=== PATIENT | male | born 1950 | race African-American/Black ===

== ENCOUNTER 2017-08-11 11:07 | Inpatient (IN) | payer OTHER ==
[2017-08-11 12:17] VITALS: BMI 29.0
--- NOTE | 2017-08-11 13:29 | HP ---
<Carolynn Brian - Last Filed: 08/11/17 14:08> COWS - Scale Resting Pulse: 0= [place] 80 or Below Sweatin=Flushed/Facial Moisture Restless Observation: 1= Difficult to Sit Still Pupil Size: 0= Normal to Room Light Bone or Joint Aches: 2= Severe Diffuse Aches Runny Nose/ Eye Tearin= Runny Nose/Eyes GI Upset > 30mins: 2= Nausea/Diarrhea Tremor Observation: 1= Tremor [place], Not Seen Yawning Observation: 2= >3x During Session Anxiety or Irritability: 2=Irritable/Anxious Goose Flesh Skin: 0=Smooth Skin COWS Score: 14 Admission ROS BHS - HPI Chief Complaint: I am here to detox from heroin. Allergies/Adverse Reactions: Allergies Allergy/AdvReac Type Severity Reaction Status Date / Time No Known Allergies Allergy Verified 08/11/17 13:20 History of Present Illness: Heroin dependence, Last detox 2-3 years ago, unable to recall location. Reports longest period of sobriety 1 year through out patient rehab. Exam Limitations: No Limitations - Ebola screening Have you traveled outside of the country in the last 21 days: No Have you had contact with anyone from an Ebola affected area: No Have you been sick,other than usual withdrawal symptoms: No Do you have a fever: No - Review of Systems Constitutional: Chills, Loss of Appetite, Changes in sleep, Unintentional Wgt. Loss EENT: reports: Double Vision Respiratory: reports: Cough (non-productive) Cardiac: reports: No Symptoms Reported GI: reports: Diarrhea : reports: No Symptoms Reported Musculoskeletal: reports: Joint Pain Integumentary: reports: Dryness Neuro: reports: No Symptoms reported Endocrine: reports: No Symptoms Reported Hematology: reports: No Symptoms Reported Psychiatric: reports: Judgement Intact, Mood/Affect Appropiate, Orientated x3, Depressed Other Systems: Reviewed and Negative Patient History - Patient Medical History Hx Anemia: No Hx Asthma: No Hx Chronic Obstructive Pulmonary Disease (COPD): No Hx Cancer: No Hx Cardiac Disorders: No Hx Congestive Heart Failure: No Hx Hypertension: Yes Hx Hypercholesterolemia: No Hx Pacemaker: No HX Cerebrovascular Accident: No Hx Seizures: No Hx Dementia: No Hx Diabetes: No Hx Gastrointestinal Disorders: No Hx Liver Disease: No Hx Genitourinary Disorders: No Hx Sexually Transmitted Disorders: Yes (reports hx of syphillis and was treated) Hx Renal Disease (ESRD): No Hx Thyroid Disease: No Hx Human Immunodeficiency Virus (HIV): No (reports negative) Hx Hepatitis C: No (reports negative) Hx Depression: Yes Hx Suicide Attempt: No (Denies ) Hx Bipolar Disorder: No Hx Schizophrenia: No - Patient Surgical History Past Surgical History: No Hx Neurologic Surgery: No Hx Cataract Extraction: No Hx Cardiac Surgery: No Hx Lung Surgery: No Hx Breast Surgery: No Hx Breast Biopsy: No Hx Abdominal Surgery: No Hx Appendectomy: No Hx Cholecystectomy: No Hx Genitourinary Surgery: No Hx Section: No Hx Orthopedic Surgery: No Anesthesia Reaction: No - PPD History Previous Implant?: No Implanted On Prior R Admission?: No PPD to be Administered?: Yes - Reproductive History Patient is a Female of Child Bearing Age (11 -55 yrs old): No - Smoking Cessation Smoking history: Former smoker (Quit 25 years ago) Have you smoked in the past 12 months: No Hx Chewing Tobacco Use: No Initiated information on smoking cessation: No - Substance & Tx. History Hx Alcohol Use: No (denies ) Hx Substance Use: Yes Substance Use Type: Heroin Hx Substance Use Treatment: Yes (as per patient 2-3 years ago, unable to recall name of the center) - Substances Abused Heroin Route: Inhalation Frequency: Daily Amount used: 5-10 bags Age of first use: 13 Date of Last Use: 08/11/17 Family Disease History - Family Disease History Family Disease History: Other: Father (Alcholism ), Mother (Kidney failure ) Admission Physical Exam BHS - Vital Signs Vital Signs: Vital Signs - 24 hr 08/11/17 12:16 Temperature 98.1 F Pulse Rate 73 Respiratory 18 Rate Blood Pressure 138/79 - Physical General Appearance: Yes: Disheveled, Other (malodorous) HEENTM: Yes: Hearing grossly Normal, Normocephalic, Normal Voice, Pharynx Normal Respiratory: Yes: Chest Non-Tender, Lungs Clear, Normal Breath Sounds, No Respiratory Distress, No Accessory Muscle Use Neck: Yes: No masses,lesions,Nodules, Trachea in good position Breast: Yes: Breast Exam Deferred Cardiology: Yes: Regular Rhythm, Regular Rate, S1, S2 Abdominal: Yes: Within Normal Limits Genitourinary: Yes: Other (Reports no symptoms) Back: Yes: Within Normal Limits, Normal Inspection Musculoskeletal: Yes: full range of Motion, Gait Steady, Pelvis Stable Extremities: Yes: Normal Capillary Refill, Normal Inspection, Normal Range of Motion, Non-Tender Neurological: Yes: car chaser II-XII NML intact, Fully Oriented, Alert, Motor Strength 5/5, Normal Response, Depressed Affect Integumentary: Yes: Normal Color, Dry Lymphatic: Yes: Within Normal Limits - Diagnostic (1) Heroin dependence Current Visit: Yes Status: Chronic (2) Hypertension Current Visit: Yes Status: Chronic [facility] Breath Alcohol Content Breath Alcohol Content: 0 Urine Drug Screen - Results Drug Screen Negative: No Urine Drug Screen Results: OPI-Opiates <lAan Fuller - Last Filed: 08/11/17 15:42> Admission Physical Exam [facility] - Vital Signs Vital Signs: Vital Signs - 24 hr 08/11/17 12:16 Temperature 98.1 F Pulse Rate 73 Respiratory 18 Rate Blood Pressure 138/79 Cleared for Admission [facility] - Detox or Rehab [facility] Level of Care: Medically Managed Detox Regimen/Protocol: Methadone
[2017-08-11] MEDS ORDERED: MAGNESIUM HYDROX 2400MG/30ML ORAL SUSPENSION 30 ML CUP PO PRN (14:18)
[2017-08-11] MEDS ORDERED: guaiFENesin/D-METHORPHAN HB 10 ML UNIT-DOSE CUPS PO PRN (14:18)
[2017-08-11] MEDS ORDERED: P-EPHED 60MG/TRIPROLIDI 2.5MG TABLET PO PRN (14:18)
[2017-08-11] MEDS ORDERED: LOPERAMIDE HCL 2 MG CAPSULE PO PRN (14:18)
[2017-08-11] MEDS ORDERED: MENTHOL/PHENOL 1 EACH UD MM PRN (14:18)
[2017-08-11] MEDS ORDERED: MAG HYDROX/AL HYDROX/SIMETH 30 ML UNIT-DOSE CUP PO PRN (14:18)
[2017-08-11] MEDS ORDERED: MAGNESIUM CITRATE 300 ML BOTTLE PO PRN (14:18)
[2017-08-11] MEDS ORDERED: ACETAMINOPHEN 325 MG TABLET (FP) PO PRN (14:18)
[2017-08-11] MEDS ORDERED: METHADONE HCL 10 MG TABLET (FOR DETOX USE ONLY) PO ONE ×2 (15:03→23:00)
[2017-08-11] MEDS: diazePAM 5 MG TABLET PO PRN (15:22)
[2017-08-11 18:10] LABS: URINE APPEARANCE TURBID; URINE BILIRUBIN NEGATIVE (NEGATIVE); URINE BLOOD NEGATIVE (NEGATIVE); URINE COLOR AMBER; URINE GLUCOSE (UA) NEGATIVE (NEGATIVE); URINE KETONE NEGATIVE (NEGATIVE); URINE LEUK ESTERASE NEGATIVE (NEGATIVE); URINE NITRITE NEGATIVE (NEGATIVE); URINE PROTEIN 1+ (NEGATIVE); URINE UROBILINOGEN 4.0 E.U/dl mg/dL (0.2-1.0)
[2017-08-11 18:41] LABS: URINE BACTERIA FEW /hpf (NONE SEEN); URINE MUCUS FEW; YEAST RARE
[2017-08-11 21:58] LABS: AMORP URATES MANY /hpf (NONE SEEN)
[2017-08-11] MEDS ORDERED: PATIENT'S OWN MEDICATION (NON-FORMULARY) (Simvastatin [Simvastatin] 10 MG) PO SCH (22:00)
[2017-08-11] MEDS: ATORVASTATIN CA 10 MG TABLET (FP) PO SCH (22:28)
[2017-08-11] MEDS: THIAMINE HCL 100 MG TABLET (FP) PO SCH (22:28)
[2017-08-12] MEDS: diazePAM 5 MG TABLET PO PRN ×2 (09:11→22:35)
--- NOTE | 2017-08-12 09:38 | EKG ---
Test Reason : Blood Pressure : / mmHG Vent. Rate : 068 BPM Atrial Rate : 068 BPM P-R Int : 132 ms QRS Dur : 092 ms QT Int : 398 ms P-R-T Axes : 051 -14 004 degrees QTc Int : 423 ms NORMAL SINUS RHYTHM MODERATE VOLTAGE CRITERIA FOR LVH, MAY BE NORMAL VARIANT BORDERLINE ECG NO PREVIOUS ECGS AVAILABLE Confirmed by DERRICK CHAPIN MD ([id number]) on 08/12/2017 9:37:53 AM Referred By: Confirmed By:DERRICK CHAPIN MD
[2017-08-12] MEDS ORDERED: ENALAPRIL MALEATE 5 MG TABLET (FP) PO SCH ×2 (10:00→12:41)
[2017-08-12] MEDS ORDERED: METHADONE HCL 10 MG TABLET (FOR DETOX USE ONLY) PO ONE (10:00)
[2017-08-12] MEDS ORDERED: amLODIPine BESYLATE 5 MG TABLET (FP) PO SCH (10:00)
[2017-08-12] MEDS: PRENATAL VITAMINS W/ FOLIC ACID TABLET (FP) PO SCH (10:10)
[2017-08-12 10:15] LABS: HEMATOCRIT 33.1 % (35.4-49); HEMOGLOBIN 10.4 GM/dL (11.7-16.9); MCH 26.4 pg (25.7-33.7); MCHC 31.5 g/dl (32.0-35.9); MEAN CELL VOLUME 83.9 fl (80-96); MEAN PLT VOLUME 8.7 fl (7.5-11.1); PLATELET COUNT 370 K/MM3 (134-434); RBC 3.94 M/mm3 (4.00-5.60); RDW 13.6 % (11.9-15.9); WHITE BLOOD COUNT 5.5 K/mm3 (4.0-10.0)
[2017-08-12 10:28] LABS: CHLORIDE 101 mmol/L (98-107); POTASSIUM 4.3 mmol/L (3.5-5.1); SODIUM 139 mmol/L (136-145)
[2017-08-12 10:37] LABS: ALBUMIN 3.5 g/dl (3.4-5.0); ALK PHOS 68 U/L (45-117); ANION GAP 8 (8-16); BILIRUBIN,TOTAL 0.4 mg/dL (0.2-1.0); BLOOD UREA NITROGEN 12 mg/dL (7-18); CALCIUM 8.8 mg/dL (8.5-10.1); CO2 30 mmol/L (21-32); CREATININE 1.1 mg/dL (0.7-1.3); GLUCOSE,RANDOM 95 mg/dL (74-106); SGOT/AST 29 U/L (15-37); SGPT/ALT 41 U/L (12-78); TOT PROT 7.3 g/dl (6.4-8.2)
[2017-08-12] MEDS ORDERED: FLU VACCINE QUAD 60 MCG/0.5 ML (MDV 17-18) IM ONE (12:00)
[2017-08-12] MEDS ORDERED: PNEUMOC 13-VAL CONJ-DIP CRM/PF 0.5 ML DISP.SYRIN IM ONE (12:00)
--- NOTE | 2017-08-12 12:40 | PN ---
BHS COWS - Scale Resting Pulse: 0= [place] 80 or Below Sweatin= Chills/Flushing Restless Observation: 3= Extraneous Movement Pupil Size: 2= Moderately Dilated Bone or Joint Aches: 2= Severe Diffuse Aches Runny Nose/ Eye Tearin= None GI Upset > 30mins: 0= None Tremor Observation of Outstretched Hands: 1= Tremor [place], Not Seen Yawning Observation: 2= >3x During Session Anxiety or Irritability: 2=Irritable/Anxious Goose Flesh Skin: 0=Smooth Skin COWS Score: 13 BHS Progress Note (SOAP) Subjective: ANXIETY,CHILLS,FATIGUE. Objective: 08/12/17 12:40 Vital Signs Temperature 99.8 F H 08/12/17 10:10 Pulse Rate 80 08/12/17 10:10 Respiratory Rate 18 08/12/17 10:10 Blood Pressure 120/62 08/12/17 10:10 O2 Sat by Pulse Oximetry (%) Laboratory Last Values WBC 5.5 K/mm3 (4.0-10.0) 08/12/17 06:00 RBC 3.94 M/mm3 (4.00-5.60) L 08/12/17 06:00 Hgb 10.4 GM/dL (11.7-16.9) L 08/12/17 06:00 Hct 33.1 % (35.4-49) L 08/12/17 06:00 MCV 83.9 fl (80-96) 08/12/17 06:00 MCH 26.4 pg (25.7-33.7) 08/12/17 06:00 MCHC 31.5 g/dl (32.0-35.9) L 08/12/17 06:00 RDW 13.6 % (11.9-15.9) 08/12/17 06:00 Plt Count 370 K/MM3 (134-434) 08/12/17 06:00 MPV 8.7 fl (7.5-11.1) 08/12/17 06:00 Sodium 139 mmol/L (136-145) 08/12/17 06:00 Potassium 4.3 mmol/L (3.5-5.1) 08/12/17 06:00 Chloride 101 mmol/L (98-107) 08/12/17 06:00 Carbon Dioxide 30 mmol/L (21-32) 08/12/17 06:00 Anion Gap 8 (8-16) 08/12/17 06:00 BUN 12 mg/dL (7-18) 08/12/17 06:00 Creatinine 1.1 mg/dL (0.7-1.3) 08/12/17 06:00 Creat Clearance w eGFR > 60 (>60) 08/12/17 06:00 Random Glucose 95 mg/dL (74-106) 08/12/17 06:00 Calcium 8.8 mg/dL (8.5-10.1) 08/12/17 06:00 Total Bilirubin 0.4 mg/dL (0.2-1.0) 08/12/17 06:00 AST 29 U/L (15-37) 08/12/17 06:00 ALT 41 U/L (12-78) 08/12/17 06:00 Alkaline Phosphatase 68 U/L (45-117) 08/12/17 06:00 Total Protein 7.3 g/dl (6.4-8.2) 08/12/17 06:00 Albumin 3.5 g/dl (3.4-5.0) 08/12/17 06:00 Urine Color K[place] 08/11/17 15:00 Urine Appearance Turbid 08/11/17 15:00 Urine pH 5.0 (5.0-8.0) 08/11/17 15:00 Ur Specific [place] 1.027 (1.001-1.035) 08/11/17 15:00 Urine Protein 1+ (NEGATIVE) H 08/11/17 15:00 Urine Glucose (UA) Negative (NEGATIVE) 08/11/17 15:00 Urine Ketones Negative (NEGATIVE) 08/11/17 15:00 Urine Blood Negative (NEGATIVE) 08/11/17 15:00 Urine Nitrite Negative (NEGATIVE) 08/11/17 15:00 Urine Bilirubin Negative (NEGATIVE) 08/11/17 15:00 Urine Urobilinogen 4.0 e.u/dl mg/dL (0.2-1.0) 08/11/17 15:00 Ur Leukocyte Esterase Negative (NEGATIVE) 08/11/17 15:00 Urine WBC (Auto) 9 /hpf (3-5) 08/11/17 15:00 Urine RBC (Auto) None /hpf (0-3) 08/11/17 15:00 Amorphous Urates Many /hpf (NONE SEEN) 08/11/17 15:00 Urine Bacteria Few /hpf (NONE SEEN) 08/11/17 15:00 Urine Mucus Few 08/11/17 15:00 Urine Yeast Rare 08/11/17 15:00 Assessment: 08/12/17 12:40 WITHDRAWAL SX Plan: CONTINUE DETOX
--- NOTE | 2017-08-12 15:08 | CONSULT ---
[facility] Psychiatric Consult - Data Date of interview: 08/12/17 Admission source: [facility] Identifying data: First admission to [facility] for this 67 y/o AA male seeking detox treatment on for heroin dependence.Patient is single without children,domiciled,unemployed and supported on SSI benefits. Substance Abuse History: Discussed with patient.Mr Rodney endorses continuous use of heroin as detailed in current [facility] report : Smoking history: Former smoker (Quit 25 years ago). Have you smoked in the past 12 months: No. Hx Chewing Tobacco Use: No. Initiated information on smoking cessation: No. - Substance & Tx. History. Hx Alcohol Use: No (denies ). Hx Substance Use: Yes. Substance Use Type: Heroin. Hx Substance Use Treatment: Yes (as per patient 2 -3 years ago, unable to recall name of the center). - Substances Abused. Heroin. Route: Inhalation. Frequency: Daily. Amount used: 5-10 bags. Age of first use: 13. Date of Last Use: 08/11/17 Medical History: Hypertension,dyslipidemia and past history of treatment for syphilis. Psychiatric History: Patient denies. Physical/Sexual Abuse/Trauma History: Patient denies. Additional Comment: Urine Drug Screen Results: OPI-Opiates.Noted. Mental Status Exam - Mental Status Exam Alert and Oriented to: Time, Place, Person Cognitive Function: Good Patient Appearance: Well Groomed (edentulous) Mood: Hopeful, Euthymic Affect: Appropriate, Normal Range Patient Behavior: Appropriate, Cooperative Speech Pattern: Clear, Appropriate Voice Loudness: Normal Thought Process: Intact, Goal Oriented Thought Disorder: Not Present Hallucinations: Denies Suicidal Ideation: Denies Homicidal Ideation: Denies Insight/Judgement: Poor Sleep: Well Appetite: Good Muscle strength/Tone: Normal Gait/Station: Normal Psychiatric Findings - Problem List ([place] 1, 2,3) (1) Opioid dependence with withdrawal Current Visit: Yes Status: Acute - Initial Treatment Plan Initial Treatment Plan: Psychoeducation and support provided.Detoxification in progress.Observation.
[2017-08-12] MEDS: ATORVASTATIN CA 10 MG TABLET (FP) PO SCH (22:34)
[2017-08-12] MEDS: THIAMINE HCL 100 MG TABLET (FP) PO SCH (22:34)
[2017-08-12] MEDS: ENALAPRIL MALEATE 10 MG TABLET (FP) PO SCH (22:34)
[2017-08-13] MEDS ORDERED: METHADONE HCL 5 MG TABLET (FOR DETOX USE ONLY) PO ONE (10:00)
[2017-08-13] MEDS: diazePAM 5 MG TABLET PO PRN ×2 (10:25→22:22)
[2017-08-13] MEDS: ENALAPRIL MALEATE 10 MG TABLET (FP) PO SCH ×2 (10:25→22:22)
[2017-08-13] MEDS: PRENATAL VITAMINS W/ FOLIC ACID TABLET (FP) PO SCH (10:25)
[2017-08-13] MEDS: amLODIPine BESYLATE 10 MG TABLET (FP) PO SCH (10:25)
[2017-08-13] MEDS: IBUPROFEN 400 MG TABLET (FP) PO PRN (11:08)
--- NOTE | 2017-08-13 11:25 | PN ---
BHS COWS - Scale Resting Pulse: 0= [place] 80 or Below Sweatin= Chills/Flushing Restless Observation: 3= Extraneous Movement Pupil Size: 2= Moderately Dilated Bone or Joint Aches: 1= Mild Discomfort Runny Nose/ Eye Tearin= Nasal Congestion GI Upset > 30mins: 0= None Tremor Observation of Outstretched Hands: 2= Slight Tremor Visible Yawning Observation: 2= >3x During Session Anxiety or Irritability: 2=Irritable/Anxious Goose Flesh Skin: 0=Smooth Skin COWS Score: 14 BHS Progress Note (SOAP) Subjective: ANXIETY,CHILLS,SWEATS,INTERMITTENT SLEEP. Objective: 08/13/17 11:23 Vital Signs Temperature 99.3 F 08/13/17 09:29 Pulse Rate 80 08/13/17 09:29 Respiratory Rate 18 08/13/17 09:29 Blood Pressure 93/60 08/13/17 09:29 O2 Sat by Pulse Oximetry (%) Laboratory Last Values WBC 5.5 K/mm3 (4.0-10.0) 08/12/17 06:00 RBC 3.94 M/mm3 (4.00-5.60) L 08/12/17 06:00 Hgb 10.4 GM/dL (11.7-16.9) L 08/12/17 06:00 Hct 33.1 % (35.4-49) L 08/12/17 06:00 MCV 83.9 fl (80-96) 08/12/17 06:00 MCH 26.4 pg (25.7-33.7) 08/12/17 06:00 MCHC 31.5 g/dl (32.0-35.9) L 08/12/17 06:00 RDW 13.6 % (11.9-15.9) 08/12/17 06:00 Plt Count 370 K/MM3 (134-434) 08/12/17 06:00 MPV 8.7 fl (7.5-11.1) 08/12/17 06:00 Sodium 139 mmol/L (136-145) 08/12/17 06:00 Potassium 4.3 mmol/L (3.5-5.1) 08/12/17 06:00 Chloride 101 mmol/L (98-107) 08/12/17 06:00 Carbon Dioxide 30 mmol/L (21-32) 08/12/17 06:00 Anion Gap 8 (8-16) 08/12/17 06:00 BUN 12 mg/dL (7-18) 08/12/17 06:00 Creatinine 1.1 mg/dL (0.7-1.3) 08/12/17 06:00 Creat Clearance w eGFR > 60 (>60) 08/12/17 06:00 Random Glucose 95 mg/dL (74-106) 08/12/17 06:00 Calcium 8.8 mg/dL (8.5-10.1) 08/12/17 06:00 Total Bilirubin 0.4 mg/dL (0.2-1.0) 08/12/17 06:00 AST 29 U/L (15-37) 08/12/17 06:00 ALT 41 U/L (12-78) 08/12/17 06:00 Alkaline Phosphatase 68 U/L (45-117) 08/12/17 06:00 Total Protein 7.3 g/dl (6.4-8.2) 08/12/17 06:00 Albumin 3.5 g/dl (3.4-5.0) 08/12/17 06:00 Urine Color Kelli 08/11/17 15:00 Urine Appearance Turbid 08/11/17 15:00 Urine pH 5.0 (5.0-8.0) 08/11/17 15:00 Ur Specific [place] 1.027 (1.001-1.035) 08/11/17 15:00 Urine Protein 1+ (NEGATIVE) H 08/11/17 15:00 Urine Glucose (UA) Negative (NEGATIVE) 08/11/17 15:00 Urine Ketones Negative (NEGATIVE) 08/11/17 15:00 Urine Blood Negative (NEGATIVE) 08/11/17 15:00 Urine Nitrite Negative (NEGATIVE) 08/11/17 15:00 Urine Bilirubin Negative (NEGATIVE) 08/11/17 15:00 Urine Urobilinogen 4.0 e.u/dl mg/dL (0.2-1.0) 08/11/17 15:00 Ur Leukocyte Esterase Negative (NEGATIVE) 08/11/17 15:00 Urine WBC (Auto) 9 /hpf (3-5) 08/11/17 15:00 Urine RBC (Auto) None /hpf (0-3) 08/11/17 15:00 Amorphous Urates Many /hpf (NONE SEEN) 08/11/17 15:00 Urine Bacteria Few /hpf (NONE SEEN) 08/11/17 15:00 Urine Mucus Few 08/11/17 15:00 Urine Yeast Rare 08/11/17 15:00 RPR Titer Nonreactive (NONREACTIVE) 08/12/17 06:00 Assessment: 08/13/17 11:23 WITHDRAWAL SX Plan: CONTINUE DETOX INCREASE PO FLUIDS.
[2017-08-13] MEDS: ATORVASTATIN CA 10 MG TABLET (FP) PO SCH (22:22)
[2017-08-13] MEDS: THIAMINE HCL 100 MG TABLET (FP) PO SCH (22:22)
[2017-08-14] MEDS ORDERED: METHADONE HCL 5 MG TABLET (FOR DETOX USE ONLY) PO ONE (10:00)
[2017-08-14] MEDS: amLODIPine BESYLATE 10 MG TABLET (FP) PO SCH (10:28)
[2017-08-14] MEDS: PRENATAL VITAMINS W/ FOLIC ACID TABLET (FP) PO SCH (10:28)
[2017-08-14] MEDS: ENALAPRIL MALEATE 10 MG TABLET (FP) PO SCH (10:28)
[2017-08-14] MEDS: IBUPROFEN 400 MG TABLET (FP) PO PRN (10:31)
--- NOTE | 2017-08-14 11:10 | PN ---
BHS Progress Note (SOAP) Subjective: LIGHT ANXIETY,FATIGUE. DENIES HEADACHE OR DIZZINESS. Objective: 08/14/17 11:07 Vital Signs 08/14/17 08/14/17 08/14/17 03:27 06:09 09:51 Temperature 97.7 F 98.2 F Pulse Rate 58 L 72 Respiratory 18 16 18 Rate Blood Pressure 163/85 96/83 Laboratory Last Values WBC 5.5 K/mm3 (4.0-10.0) 08/12/17 06:00 RBC 3.94 M/mm3 (4.00-5.60) L 08/12/17 06:00 Hgb 10.4 GM/dL (11.7-16.9) L 08/12/17 06:00 Hct 33.1 % (35.4-49) L 08/12/17 06:00 MCV 83.9 fl (80-96) 08/12/17 06:00 MCH 26.4 pg (25.7-33.7) 08/12/17 06:00 MCHC 31.5 g/dl (32.0-35.9) L 08/12/17 06:00 RDW 13.6 % (11.9-15.9) 08/12/17 06:00 Plt Count 370 K/MM3 (134-434) 08/12/17 06:00 MPV 8.7 fl (7.5-11.1) 08/12/17 06:00 Sodium 139 mmol/L (136-145) 08/12/17 06:00 Potassium 4.3 mmol/L (3.5-5.1) 08/12/17 06:00 Chloride 101 mmol/L (98-107) 08/12/17 06:00 Carbon Dioxide 30 mmol/L (21-32) 08/12/17 06:00 Anion Gap 8 (8-16) 08/12/17 06:00 BUN 12 mg/dL (7-18) 08/12/17 06:00 Creatinine 1.1 mg/dL (0.7-1.3) 08/12/17 06:00 Creat Clearance w eGFR > 60 (>60) 08/12/17 06:00 Random Glucose 95 mg/dL (74-106) 08/12/17 06:00 Calcium 8.8 mg/dL (8.5-10.1) 08/12/17 06:00 Total Bilirubin 0.4 mg/dL (0.2-1.0) 08/12/17 06:00 AST 29 U/L (15-37) 08/12/17 06:00 ALT 41 U/L (12-78) 08/12/17 06:00 Alkaline Phosphatase 68 U/L (45-117) 08/12/17 06:00 Total Protein 7.3 g/dl (6.4-8.2) 08/12/17 06:00 Albumin 3.5 g/dl (3.4-5.0) 08/12/17 06:00 Urine Color Kelli 08/11/17 15:00 Urine Appearance Turbid 08/11/17 15:00 Urine pH 5.0 (5.0-8.0) 08/11/17 15:00 Ur Specific [place] 1.027 (1.001-1.035) 08/11/17 15:00 Urine Protein 1+ (NEGATIVE) H 08/11/17 15:00 Urine Glucose (UA) Negative (NEGATIVE) 08/11/17 15:00 Urine Ketones Negative (NEGATIVE) 08/11/17 15:00 Urine Blood Negative (NEGATIVE) 08/11/17 15:00 Urine Nitrite Negative (NEGATIVE) 08/11/17 15:00 Urine Bilirubin Negative (NEGATIVE) 08/11/17 15:00 Urine Urobilinogen 4.0 e.u/dl mg/dL (0.2-1.0) 08/11/17 15:00 Ur Leukocyte Esterase Negative (NEGATIVE) 08/11/17 15:00 Urine WBC (Auto) 9 /hpf (3-5) 08/11/17 15:00 Urine RBC (Auto) None /hpf (0-3) 08/11/17 15:00 Amorphous Urates Many /hpf (NONE SEEN) 08/11/17 15:00 Urine Bacteria Few /hpf (NONE SEEN) 08/11/17 15:00 Urine Mucus Few 08/11/17 15:00 Urine Yeast Rare 08/11/17 15:00 RPR Titer Nonreactive (NONREACTIVE) 08/12/17 06:00 Assessment: 08/14/17 11:08 WITHDRAWAL SX Plan: CONTINUE DETOX
--- NOTE | 2017-08-14 11:26 | PN ---
[facility] Progress Note Note: Vital Signs - 8 hr 08/14/17 08/14/17 08/14/17 03:27 06:09 09:51 Temperature 97.7 F 98.2 F Pulse Rate 58 L 72 Respiratory 18 16 18 Rate Blood Pressure 163/85 96/83 REPEAT BP 94/83 PULSE OX 99% RM AIR. HOLD BP MEDS-NORVASC 10 MG AND ENALAPRIL MAY RESTART IF BP STABLE AND SUPPORTIVE OF MEDICATION. INCREASE PO FLUIDS. MONITOR PT CLOSELY
[2017-08-14] MEDS: ATORVASTATIN CA 10 MG TABLET (FP) PO SCH (22:18)
[2017-08-14] MEDS: THIAMINE HCL 100 MG TABLET (FP) PO SCH (22:18)
[2017-08-15] MEDS ORDERED: METHADONE HCL 10 MG TABLET (FOR DETOX USE ONLY) PO ONE (10:00)
[2017-08-15] MEDS: PRENATAL VITAMINS W/ FOLIC ACID TABLET (FP) PO SCH (10:20)
[2017-08-15] MEDS: IBUPROFEN 400 MG TABLET (FP) PO PRN (10:22)
--- NOTE | 2017-08-15 10:54 | PN ---
BHS Progress Note (SOAP) Subjective: Irritability, chills and shakes Objective: 08/15/17 10:53 Vital Signs - 8 hr 08/15/17 08/15/17 08/15/17 03:27 06:24 09:10 Temperature 97.6 F 98.6 F Pulse Rate 63 77 Respiratory 18 18 18 Rate Blood Pressure 147/82 96/59 Laboratory Last Values WBC 5.5 K/mm3 (4.0-10.0) 08/12/17 06:00 RBC 3.94 M/mm3 (4.00-5.60) L 08/12/17 06:00 Hgb 10.4 GM/dL (11.7-16.9) L 08/12/17 06:00 Hct 33.1 % (35.4-49) L 08/12/17 06:00 MCV 83.9 fl (80-96) 08/12/17 06:00 MCH 26.4 pg (25.7-33.7) 08/12/17 06:00 MCHC 31.5 g/dl (32.0-35.9) L 08/12/17 06:00 RDW 13.6 % (11.9-15.9) 08/12/17 06:00 Plt Count 370 K/MM3 (134-434) 08/12/17 06:00 MPV 8.7 fl (7.5-11.1) 08/12/17 06:00 Sodium 139 mmol/L (136-145) 08/12/17 06:00 Potassium 4.3 mmol/L (3.5-5.1) 08/12/17 06:00 Chloride 101 mmol/L (98-107) 08/12/17 06:00 Carbon Dioxide 30 mmol/L (21-32) 08/12/17 06:00 Anion Gap 8 (8-16) 08/12/17 06:00 BUN 12 mg/dL (7-18) 08/12/17 06:00 Creatinine 1.1 mg/dL (0.7-1.3) 08/12/17 06:00 Creat Clearance w eGFR > 60 (>60) 08/12/17 06:00 Random Glucose 95 mg/dL (74-106) 08/12/17 06:00 Calcium 8.8 mg/dL (8.5-10.1) 08/12/17 06:00 Total Bilirubin 0.4 mg/dL (0.2-1.0) 08/12/17 06:00 AST 29 U/L (15-37) 08/12/17 06:00 ALT 41 U/L (12-78) 08/12/17 06:00 Alkaline Phosphatase 68 U/L (45-117) 08/12/17 06:00 Total Protein 7.3 g/dl (6.4-8.2) 08/12/17 06:00 Albumin 3.5 g/dl (3.4-5.0) 08/12/17 06:00 Urine Color Kelli 08/11/17 15:00 Urine Appearance Turbid 08/11/17 15:00 Urine pH 5.0 (5.0-8.0) 08/11/17 15:00 Ur Specific [place] 1.027 (1.001-1.035) 08/11/17 15:00 Urine Protein 1+ (NEGATIVE) H 08/11/17 15:00 Urine Glucose (UA) Negative (NEGATIVE) 08/11/17 15:00 Urine Ketones Negative (NEGATIVE) 08/11/17 15:00 Urine Blood Negative (NEGATIVE) 08/11/17 15:00 Urine Nitrite Negative (NEGATIVE) 08/11/17 15:00 Urine Bilirubin Negative (NEGATIVE) 08/11/17 15:00 Urine Urobilinogen 4.0 e.u/dl mg/dL (0.2-1.0) 08/11/17 15:00 Ur Leukocyte Esterase Negative (NEGATIVE) 08/11/17 15:00 Urine WBC (Auto) 9 /hpf (3-5) 08/11/17 15:00 Urine RBC (Auto) None /hpf (0-3) 08/11/17 15:00 Amorphous Urates Many /hpf (NONE SEEN) 08/11/17 15:00 Urine Bacteria Few /hpf (NONE SEEN) 08/11/17 15:00 Urine Mucus Few 08/11/17 15:00 Urine Yeast Rare 08/11/17 15:00 RPR Titer Nonreactive (NONREACTIVE) 08/12/17 06:00 Labs noted Assessment: 08/15/17 10:54 Withdrawal sx Plan: Continue detox
[2017-08-15] MEDS: ATORVASTATIN CA 10 MG TABLET (FP) PO SCH (22:27)
[2017-08-15] MEDS: THIAMINE HCL 100 MG TABLET (FP) PO SCH (22:27)
[2017-08-16] MEDS ORDERED: METHADONE HCL 5 MG TABLET (FOR DETOX USE ONLY) PO ONE (06:00)
[2017-08-16 06:39] VITALS: BP 120/73; PULSE 60; TEMP 98.5
--- NOTE | 2017-08-16 10:23 | DS ---
[facility] Detox Discharge Summary Admission Date: 08/11/17 Discharge Date: 08/16/17 - History Pertinent Past History: HTN - Physical Exam Results Vital Signs: Vital Signs Temperature 98.5 F 08/16/17 06:38 Pulse Rate 60 08/16/17 06:38 Respiratory Rate 18 08/16/17 06:38 Blood Pressure 120/73 08/16/17 06:38 O2 Sat by Pulse Oximetry (%) Pertinent Admission Physical Exam Findings: withdrawal sx Laboratory Last Values WBC 5.5 K/mm3 (4.0-10.0) 08/12/17 06:00 RBC 3.94 M/mm3 (4.00-5.60) L 08/12/17 06:00 Hgb 10.4 GM/dL (11.7-16.9) L 08/12/17 06:00 Hct 33.1 % (35.4-49) L 08/12/17 06:00 MCV 83.9 fl (80-96) 08/12/17 06:00 MCH 26.4 pg (25.7-33.7) 08/12/17 06:00 MCHC 31.5 g/dl (32.0-35.9) L 08/12/17 06:00 RDW 13.6 % (11.9-15.9) 08/12/17 06:00 Plt Count 370 K/MM3 (134-434) 08/12/17 06:00 MPV 8.7 fl (7.5-11.1) 08/12/17 06:00 Sodium 139 mmol/L (136-145) 08/12/17 06:00 Potassium 4.3 mmol/L (3.5-5.1) 08/12/17 06:00 Chloride 101 mmol/L (98-107) 08/12/17 06:00 Carbon Dioxide 30 mmol/L (21-32) 08/12/17 06:00 Anion Gap 8 (8-16) 08/12/17 06:00 BUN 12 mg/dL (7-18) 08/12/17 06:00 Creatinine 1.1 mg/dL (0.7-1.3) 08/12/17 06:00 Creat Clearance w eGFR > 60 (>60) 08/12/17 06:00 Random Glucose 95 mg/dL (74-106) 08/12/17 06:00 Calcium 8.8 mg/dL (8.5-10.1) 08/12/17 06:00 Total Bilirubin 0.4 mg/dL (0.2-1.0) 08/12/17 06:00 AST 29 U/L (15-37) 08/12/17 06:00 ALT 41 U/L (12-78) 08/12/17 06:00 Alkaline Phosphatase 68 U/L (45-117) 08/12/17 06:00 Total Protein 7.3 g/dl (6.4-8.2) 08/12/17 06:00 Albumin 3.5 g/dl (3.4-5.0) 08/12/17 06:00 Urine Color Kelli 08/11/17 15:00 Urine Appearance Turbid 08/11/17 15:00 Urine pH 5.0 (5.0-8.0) 08/11/17 15:00 Ur Specific [place] 1.027 (1.001-1.035) 08/11/17 15:00 Urine Protein 1+ (NEGATIVE) H 08/11/17 15:00 Urine Glucose (UA) Negative (NEGATIVE) 08/11/17 15:00 Urine Ketones Negative (NEGATIVE) 08/11/17 15:00 Urine Blood Negative (NEGATIVE) 08/11/17 15:00 Urine Nitrite Negative (NEGATIVE) 08/11/17 15:00 Urine Bilirubin Negative (NEGATIVE) 08/11/17 15:00 Urine Urobilinogen 4.0 e.u/dl mg/dL (0.2-1.0) 08/11/17 15:00 Ur Leukocyte Esterase Negative (NEGATIVE) 08/11/17 15:00 Urine WBC (Auto) 9 /hpf (3-5) 08/11/17 15:00 Urine RBC (Auto) None /hpf (0-3) 08/11/17 15:00 Amorphous Urates Many /hpf (NONE SEEN) 08/11/17 15:00 Urine Bacteria Few /hpf (NONE SEEN) 08/11/17 15:00 Urine Mucus Few 08/11/17 15:00 Urine Yeast Rare 08/11/17 15:00 RPR Titer Nonreactive (NONREACTIVE) 08/12/17 06:00 Vital Signs Temperature 98.5 F 08/16/17 06:38 Pulse Rate 60 08/16/17 06:38 Respiratory Rate 08/16/17 06:38 Blood Pressure 120/73 08/16/17 06:38 O2 Sat by Pulse Oximetry (%) - Treatment Hospital Course: Detox Protocol Followed, Detoxed Safely, Responded well, Discharged Condition Good, Rehab Referral Accepted Patient has Accepted a Rehab Referral to: [facility] f/u as outpatient at [facility] or [facility] - Medication Discharge Medications: Ambulatory Orders Amlodipine Besylate 5 mg PO DAILY 30 Days #30 tablet 08/16/17 Enalapril Maleate [Vasotec -] 5 mg PO DAILY 30 Days #30 tablet NS 08/16/17 Simvastatin 10 mg PO HS 30 Days #30 tablet NS 08/16/17 - Diagnosis (1) Opioid dependence with withdrawal Current Visit: Yes Status: Acute (2) Hyperlipidemia Current Visit: Yes Status: Acute (3) Hypertension Current Visit: Yes Status: Chronic Qualifiers: Hypertension type: essential hypertension Qualified Code(s): I10 - Essential (primary) hypertension - AMA Did Patient Leave Against Medical Advice: No
== END 2017-08-16 10:15 | disposition home or self-care (01) | DRG 897 ==
LOC: YASAS 11:07 → Y3N 13:55
PROVIDERS: ADMIT Internal Medicine; ATTEND Internal Medicine
PROC: HZ2ZZZZ Detoxification Services for Substance Abuse Treatment (ICD-10-PCS; principal; 2017-08-11)
DX: F11.23 Opioid dependence with withdrawal (principal); F32.9 Major depressive disorder, single episode, unspecified; I10 Essential (primary) hypertension; E78.5 Hyperlipidemia, unspecified
CPT/HCPCS: 36415; 80053; 81003; 81015; 85027; 86593; 90670; 90688; 93005; 93010; G0008; G0009

== ENCOUNTER 2018-02-15 14:45 | Inpatient (IN) | payer OTHER ==
[2018-02-15 16:26] VITALS: BMI 26.4
--- NOTE | 2018-02-15 17:19 | HP ---
COWS - Scale Resting Pulse: 0= [place] 80 or Below Sweatin= Chills/Flushing Restless Observation: 0= Sits Still Pupil Size: 1= Pupils >than Normal Bone or Joint Aches: 2= Severe Diffuse Aches Runny Nose/ Eye Tearin= Runny Nose/Eyes GI Upset > 30mins: 2= Nausea/Diarrhea Tremor Observation: 1= Tremor [place], Not Seen Yawning Observation: 1= 1-2x During Session Anxiety or Irritability: 2=Irritable/Anxious Goose Flesh Skin: 0=Smooth Skin COWS Score: 12 Admission [facility] Chief Complaint: HEROIN WITHDRAWAL SYMPTOMS Allergies/Adverse Reactions: Allergies Allergy/AdvReac Type Severity Reaction Status Date / Time No Known Allergies Allergy Verified 08/11/17 13:20 History of Present Illness: PATIENT PRESENTS FOR DETOX FROM HEROIN WITHDRAWAL SYMPTOMS. PATIENT LAST ATTEMPTED DETOX AT [facility] IN [place] LAST MONTH BUT RELAPSED DAY OF DISCHARGE. PATIENT STARTED SNIFFING HEROIN AT AGE 15. SNIFFS UP TO 5-10 BAGS DAILY. LAST TIME HE USED WAS THIS MORNING. PATIENT DENIES HX OF OVERDOSE AND SEIZURES. PMH INCLUDES HTN, HLD. DENIES SI/HI AND SUICIDE ATTEMPTS. LONGEST PERIOD OF SOBRIETY WAS 6 YEARS. Exam Limitations: No Limitations - Ebola screening Have you traveled outside of the country in the last 21 days: No (N) Have you had contact with anyone from an Ebola affected area: No Have you been sick,other than usual withdrawal symptoms: No Do you have a fever: No - Review of Systems Constitutional: Chills, Night Sweats, Changes in sleep EENT: reports: Nose Congestion Respiratory: reports: No Symptoms reported Cardiac: reports: No Symptoms Reported GI: reports: Nausea, Poor Fluid Intake, Abdominal cramping : reports: No Symptoms Reported Musculoskeletal: reports: Back Pain, Muscle Pain Integumentary: reports: Flushing Neuro: reports: Headache, Tremors Endocrine: reports: No Symptoms Reported Hematology: reports: No Symptoms Reported Psychiatric: reports: Orientated x3, Anxious, Depressed Patient History - Patient Medical History Hx Anemia: No Hx Asthma: No Hx Chronic Obstructive Pulmonary Disease (COPD): No Hx Cancer: No Hx Cardiac Disorders: No Hx Congestive Heart Failure: No Hx Hypertension: Yes Hx Hypercholesterolemia: Yes Hx Pacemaker: No HX Cerebrovascular Accident: No Hx Seizures: No Hx Dementia: No Hx Diabetes: No Hx Gastrointestinal Disorders: No Hx Liver Disease: No Hx Genitourinary Disorders: No Hx Sexually Transmitted Disorders: Yes (reports hx of syphillis and was treated) Hx Renal Disease (ESRD): No Hx Thyroid Disease: No Hx Human Immunodeficiency Virus (HIV): No (reports negative) Hx Hepatitis C: No (reports negative) Hx Depression: Yes Hx Suicide Attempt: No (Denies ) Hx Bipolar Disorder: No Hx Schizophrenia: No - Patient Surgical History Past Surgical History: No Hx Neurologic Surgery: No Hx Cataract Extraction: No Hx Cardiac Surgery: No Hx Lung Surgery: No Hx Breast Surgery: No Hx Breast Biopsy: No Hx Abdominal Surgery: No Hx Appendectomy: No Hx Cholecystectomy: No Hx Genitourinary Surgery: Yes (KIDNEY STONE REMOVAL 11/25/17 ) Hx Orthopedic Surgery: No Anesthesia Reaction: No - PPD History Previous Implant?: Yes Documented Results: Negative w/o proof Date: 08/13/17 PPD to be Administered?: No - Smoking Cessation Smoking history: Former smoker (Quit 25 years ago) Have you smoked in the past 12 months: No Hx Chewing Tobacco Use: No Initiated information on smoking cessation: No - Substance & Tx. History Hx Alcohol Use: No Hx Substance Use: Yes Substance Use Type: Heroin Hx Substance Use Treatment: Yes - Substances Abused Heroin Route: Inhalation Frequency: Daily Amount used: 5-10 BAGS Age of first use: 15 Date of Last Use: 02/15/18 Family Disease History - Family Disease History Family Disease History: Other: Father (Alcholism ), Mother (Kidney failure ) Admission Physical Exam BHS - Vital Signs Vital Signs: Vital Signs - 24 hr 02/15/18 16:21 Temperature 99.1 F Pulse Rate 61 Respiratory 18 Rate Blood Pressure 165/74 - Physical General Appearance: Yes: No Apparent Distress, Appropriately Dressed, Tremorous , Anxious HEENTM: Yes: EOMI, Hearing grossly Normal, Normocephalic, Normal Voice, ANGELA, Nasal Congestion Respiratory: Yes: Chest Non-Tender, Lungs Clear, Normal Breath Sounds, No Respiratory Distress, No Accessory Muscle Use Neck: Yes: No masses,lesions,Nodules, Supple Breast: Yes: Breast Exam Deferred Cardiology: Yes: Regular Rhythm, Regular Rate, S1, S2 Abdominal: Yes: Normal Bowel Sounds, Non Tender, Soft Genitourinary: Yes: Within Normal Limits Back: Yes: Normal Inspection, Muscle Spasm Musculoskeletal: Yes: full range of Motion, Gait Steady, Back pain, Muscle Pain Extremities: Yes: Normal Inspection, Normal Range of Motion, Non-Tender, Tremors , Swelling Neurological: Yes: ambulatory analyst II-XII NML intact, Fully Oriented, Alert, Motor Strength 5/5 Integumentary: Yes: Normal Color, Warm, Moist Lymphatic: Yes: Within Normal Limits - Diagnostic (1) Depression Current Visit: No Status: Suspected Qualifiers: Depression Type: unspecified Qualified Code(s): F32.9 - Major depressive disorder, single episode, unspecified (2) Hyperlipidemia Current Visit: Yes Status: Chronic Qualifiers: Hyperlipidemia type: unspecified Qualified Code(s): E78.5 - Hyperlipidemia , unspecified (3) Opioid dependence with withdrawal Current Visit: Yes Status: Acute (4) Hypertension Current Visit: Yes Status: Chronic Qualifiers: Hypertension type: essential hypertension Qualified Code(s): I10 - Essential (primary) hypertension Cleared for Admission [facility] - Detox or Rehab [facility] Level of Care: Medically Managed Detox Regimen/Protocol: Methadone [facility] Breath Alcohol Content Breath Alcohol Content: 0 Urine Drug Screen - Results Drug Screen Negative: No Urine Drug Screen Results: OPI-Opiates
[2018-02-15] MEDS ORDERED: hydrOXYzine PAMOATE 50 MG CAPSULE (FP) PO PRN (17:26)
[2018-02-15] MEDS ORDERED: LOPERAMIDE HCL 2 MG CAPSULE PO PRN (17:26)
[2018-02-15] MEDS ORDERED: MENTHOL/PHENOL 1 EACH UD MM PRN (17:26)
[2018-02-15] MEDS ORDERED: MAGNESIUM HYDROX 2400MG/30ML ORAL SUSPENSION 30 ML CUP PO PRN (17:26)
[2018-02-15] MEDS ORDERED: guaiFENesin/D-METHORPHAN HB 10 ML UNIT-DOSE CUPS PO PRN (17:26)
[2018-02-15] MEDS ORDERED: MAGNESIUM CITRATE 300 ML BOTTLE PO PRN (17:26)
[2018-02-15] MEDS ORDERED: P-EPHED 60MG/TRIPROLIDI 2.5MG TABLET PO PRN (17:26)
[2018-02-15] MEDS ORDERED: IBUPROFEN 400 MG TABLET (FP) PO PRN (17:26)
[2018-02-15] MEDS ORDERED: MAG HYDROX/AL HYDROX/SIMETH 30 ML UNIT-DOSE CUP PO PRN (17:26)
[2018-02-15] MEDS ORDERED: ACETAMINOPHEN 325 MG TABLET (FP) PO PRN (17:26)
[2018-02-15] MEDS ORDERED: METHADONE HCL 10 MG TABLET (FOR DETOX USE ONLY) PO ONE ×2 (18:45→23:00)
[2018-02-15] MEDS: diazePAM 5 MG TABLET PO PRN (20:33)
[2018-02-15] MEDS: THIAMINE HCL 100 MG TABLET (FP) PO SCH (23:21)
[2018-02-15] MEDS: ATORVASTATIN CA 10 MG TABLET (FP) PO SCH (23:21)
[2018-02-16 09:57] LABS: HEMATOCRIT 33.9 % (35.4-49); HEMOGLOBIN 11.2 GM/dL (11.7-16.9); MCH 27.1 pg (25.7-33.7); MEAN CELL VOLUME 82.2 fl (80-96); MEAN PLT VOLUME 8.9 fl (7.5-11.1); PLATELET COUNT 207 K/MM3 (134-434); RBC 4.13 M/mm3 (4.00-5.60); RDW 13.7 % (11.9-15.9); WHITE BLOOD COUNT 3.7 K/mm3 (4.0-10.0)
[2018-02-16] MEDS ORDERED: METHADONE HCL 10 MG TABLET (FOR DETOX USE ONLY) PO ONE (10:00)
--- NOTE | 2018-02-16 10:00 | PN ---
BHS COWS - Scale Resting Pulse: 0= [place] 80 or Below Sweatin= Chills/Flushing Restless Observation: 3= Extraneous Movement Pupil Size: 1= Pupils >than Normal Bone or Joint Aches: 2= Severe Diffuse Aches Runny Nose/ Eye Tearin= Runny Nose/Eyes GI Upset > 30mins: 2= Nausea/Diarrhea Tremor Observation of Outstretched Hands: 2= Slight Tremor Visible Yawning Observation: 1= 1-2x During Session Anxiety or Irritability: 2=Irritable/Anxious Goose Flesh Skin: 0=Smooth Skin COWS Score: 16 S Progress Note (SOAP) Subjective: alert,irritable,anxious,interrupted sleep,pain in the body,tremor Objective: 02/16/18 09:57 Vital Signs Temperature 98.1 F 02/16/18 09:05 Pulse Rate 60 02/16/18 09:05 Respiratory Rate 19 02/16/18 09:05 Blood Pressure 147/71 02/16/18 09:05 O2 Sat by Pulse Oximetry (%) ekg nsr with pac,lvh, qt/qtc 416/418 Laboratory Last Values WBC 3.7 K/mm3 (4.0-10.0) L 02/16/18 07:00 RBC 4.13 M/mm3 (4.00-5.60) 02/16/18 07:00 Hgb 11.2 GM/dL (11.7-16.9) L 02/16/18 07:00 Hct 33.9 % (35.4-49) L 02/16/18 07:00 MCV 82.2 fl (80-96) 02/16/18 07:00 MCH 27.1 pg (25.7-33.7) 02/16/18 07:00 MCHC 33.0 g/dl (32.0-35.9) 02/16/18 07:00 RDW 13.7 % (11.9-15.9) 02/16/18 07:00 Plt Count 207 K/MM3 (134-434) D 02/16/18 07:00 MPV 8.9 fl (7.5-11.1) 02/16/18 07:00 no chest pain,no sob,no dizziness Assessment: 02/16/18 09:59 withdrawal symptom Plan: continue detox
[2018-02-16] MEDS: PRENATAL VITAMINS W/ FOLIC ACID TABLET (FP) PO SCH (10:13)
[2018-02-16] MEDS: amLODIPine BESYLATE 5 MG TABLET (FP) PO SCH (10:13)
[2018-02-16] MEDS: ENALAPRIL MALEATE 5 MG TABLET (FP) PO SCH (10:14)
[2018-02-16 10:53] LABS: ALBUMIN 3.8 g/dl (3.4-5.0); ANION GAP 6 (8-16); BLOOD UREA NITROGEN 11 mg/dL (7-18); CALCIUM 9.1 mg/dL (8.5-10.1); CHLORIDE 104 mmol/L (98-107); CO2 30 mmol/L (21-32); GLUCOSE,RANDOM 100 mg/dL (74-106); POTASSIUM 4.7 mmol/L (3.5-5.1); SODIUM 140 mmol/L (136-145)
[2018-02-16 10:58] LABS: ALK PHOS 77 U/L (45-117); BILIRUBIN,TOTAL 0.3 mg/dL (0.2-1.0); SGOT/AST 18 U/L (15-37); SGPT/ALT 22 U/L (12-78); TOT PROT 7.2 g/dl (6.4-8.2)
--- NOTE | 2018-02-16 11:31 | EKG ---
Test Reason : Blood Pressure : / mmHG Vent. Rate : 061 BPM Atrial Rate : 061 BPM P-R Int : 132 ms QRS Dur : 094 ms QT Int : 416 ms P-R-T Axes : 066 -12 013 degrees QTc Int : 418 ms SINUS RHYTHM WITH PREMATURE ATRIAL COMPLEXES MINIMAL VOLTAGE CRITERIA FOR LVH, MAY BE NORMAL VARIANT BORDERLINE ECG Confirmed by MD ROGER, LISE ([id number]) on 02/16/2018 11:30:38 AM Referred By: Confirmed By:LISE DURAN MD
--- NOTE | 2018-02-16 14:35 | CONSULT ---
[facility] Psychiatric Consult - Data Date of interview: 02/16/18 Admission source: [facility] Identifying data: Patient is a 67 year old single male, without kids, unemployed , domiciled and supported by [facility]. This is one of multiple admissions for patient. Pt. admitted to for opiate dependence. Substance Abuse History: - Smoking Cessation. Smoking history: Former smoker ( Quit 25 years ago). Have you smoked in the past 12 months: No. Hx Chewing Tobacco Use: No. Initiated information on smoking cessation: No. - Substance & Tx. History. Hx Alcohol Use: No. Hx Substance Use: Yes. Substance Use Type : Heroin. Hx Substance Use Treatment: Yes. - Substances Abused. Heroin. Route: Inhalation. Frequency: Daily. Amount used: 5-10 BAGS. Age of first use : 15. Date of Last Use: 02/15/18 Medical History: hypertension, hypercholesterolemia, reports hx of syphillis and was treated, Kidney stone removal 11/25/17 Psychiatric History: Patient denies h/o psychiatric hospitalization, outpatient care, and suicide attempt. Physical/Sexual Abuse/Trauma History: Denies. Mental Status Exam - Mental Status Exam Alert and Oriented to: Time, Place, Person Cognitive Function: Good Patient Appearance: Well Groomed Mood: Euthymic Affect: Mood Congruent Patient Behavior: Appropriate, Cooperative Speech Pattern: Clear, Appropriate Voice Loudness: Normal Thought Process: Intact, Goal Oriented Thought Disorder: Not Present Hallucinations: Denies Suicidal Ideation: Denies Homicidal Ideation: Denies Insight/Judgement: Poor Sleep: Fair Appetite: Good Muscle strength/Tone: Normal Gait/Station: Normal Psychiatric Findings - Problem List ([place] 1, 2,3) (1) Opioid dependence with withdrawal Current Visit: Yes Status: Acute (2) Hyperlipidemia Current Visit: Yes Status: Chronic Qualifiers: Hyperlipidemia type: unspecified Qualified Code(s): E78.5 - Hyperlipidemia , unspecified (3) Hypertension Current Visit: Yes Status: Chronic Qualifiers: Hypertension type: essential hypertension Qualified Code(s): I10 - Essential (primary) hypertension - Initial Treatment Plan Initial Treatment Plan: Psychoeducation provided. Detoxification in progress. Observation.
[2018-02-16] MEDS: THIAMINE HCL 100 MG TABLET (FP) PO SCH (22:42)
[2018-02-16] MEDS: ATORVASTATIN CA 10 MG TABLET (FP) PO SCH (22:42)
[2018-02-17] MEDS ORDERED: METHADONE HCL 5 MG TABLET (FOR DETOX USE ONLY) PO ONE (10:00)
[2018-02-17] MEDS: PRENATAL VITAMINS W/ FOLIC ACID TABLET (FP) PO SCH (10:25)
[2018-02-17] MEDS: amLODIPine BESYLATE 5 MG TABLET (FP) PO SCH (10:26)
[2018-02-17] MEDS: ENALAPRIL MALEATE 5 MG TABLET (FP) PO SCH (10:26)
[2018-02-17] MEDS: diazePAM 5 MG TABLET PO PRN ×2 (10:27→22:22)
--- NOTE | 2018-02-17 11:22 | PN ---
BHS COWS - Scale Resting Pulse: 0= [place] 80 or Below Sweatin= Chills/Flushing Restless Observation: 3= Extraneous Movement Pupil Size: 1= Pupils >than Normal Bone or Joint Aches: 2= Severe Diffuse Aches Runny Nose/ Eye Tearin= Runny Nose/Eyes GI Upset > 30mins: 2= Nausea/Diarrhea Tremor Observation of Outstretched Hands: 2= Slight Tremor Visible Yawning Observation: 1= 1-2x During Session Anxiety or Irritability: 2=Irritable/Anxious Goose Flesh Skin: 0=Smooth Skin COWS Score: 16 BHS Progress Note (SOAP) Subjective: alert,irritable,anxious,interrupted sleep,pain in the body and back Objective: 02/17/18 11:20 Vital Signs Temperature 98.2 F 02/17/18 09:05 Pulse Rate 71 02/17/18 09:05 Respiratory Rate 18 02/17/18 09:05 Blood Pressure 137/87 02/17/18 09:05 O2 Sat by Pulse Oximetry (%) Laboratory Last Values WBC 3.7 K/mm3 (4.0-10.0) L 02/16/18 07:00 RBC 4.13 M/mm3 (4.00-5.60) 02/16/18 07:00 Hgb 11.2 GM/dL (11.7-16.9) L 02/16/18 07:00 Hct 33.9 % (35.4-49) L 02/16/18 07:00 MCV 82.2 fl (80-96) 02/16/18 07:00 MCH 27.1 pg (25.7-33.7) 02/16/18 07:00 MCHC 33.0 g/dl (32.0-35.9) 02/16/18 07:00 RDW 13.7 % (11.9-15.9) 02/16/18 07:00 Plt Count 207 K/MM3 (134-434) D 02/16/18 07:00 MPV 8.9 fl (7.5-11.1) 02/16/18 07:00 Sodium 140 mmol/L (136-145) 02/16/18 07:00 Potassium 4.7 mmol/L (3.5-5.1) 02/16/18 07:00 Chloride 104 mmol/L (98-107) 02/16/18 07:00 Carbon Dioxide 30 mmol/L (21-32) 02/16/18 07:00 Anion Gap 6 (8-16) L 02/16/18 07:00 BUN 11 mg/dL (7-18) 02/16/18 07:00 Creatinine 1.0 mg/dL (0.7-1.3) 02/16/18 07:00 Creat Clearance w eGFR > 60 (>60) 02/16/18 07:00 Random Glucose 100 mg/dL (74-106) 02/16/18 07:00 Calcium 9.1 mg/dL (8.5-10.1) 02/16/18 07:00 Total Bilirubin 0.3 mg/dL (0.2-1.0) 02/16/18 07:00 AST 18 U/L (15-37) D 02/16/18 07:00 ALT 22 U/L (12-78) D 02/16/18 07:00 Alkaline Phosphatase 77 U/L (45-117) 02/16/18 07:00 Total Protein 7.2 g/dl (6.4-8.2) 02/16/18 07:00 Albumin 3.8 g/dl (3.4-5.0) 02/16/18 07:00 RPR Titer Nonreactive (NONREACTIVE) 02/16/18 07:00 Assessment: 02/17/18 11:21 withdrawal symptom Plan: continue detox
[2018-02-17 17:32] LABS: URINE APPEARANCE CLEAR; URINE BILIRUBIN NEGATIVE (<2.0 mg/dL); URINE COLOR YELLOW; URINE GLUCOSE (UA) NEGATIVE (NEGATIVE); URINE KETONE NEGATIVE (NEGATIVE); URINE LEUK ESTERASE TRACE (NEGATIVE); URINE NITRITE NEGATIVE (NEGATIVE); URINE PROTEIN NEGATIVE (NEGATIVE); URINE UROBILINOGEN NEGATIVE mg/dL (0.2-1.0)
[2018-02-17 17:39] LABS: EPI CELLS RARE /HPF (FEW); URINE HYALINE CAST 1 /lpf; URINE MUCUS RARE
[2018-02-17] MEDS: THIAMINE HCL 100 MG TABLET (FP) PO SCH (22:21)
[2018-02-17] MEDS: MELATONIN 5 MG TABLETS PO PRN (22:21)
[2018-02-17] MEDS: ATORVASTATIN CA 10 MG TABLET (FP) PO SCH (22:22)
--- NOTE | 2018-02-18 09:36 | PN ---
BHS Progress Note (SOAP) Subjective: alert,irritable,anxious,interrupted sleep,pain in the body and back Objective: 02/18/18 09:35 Vital Signs Temperature 98.8 F 02/18/18 07:19 Pulse Rate 84 02/18/18 07:19 Respiratory Rate 18 02/18/18 07:19 Blood Pressure 143/87 02/18/18 07:19 O2 Sat by Pulse Oximetry (%) Assessment: 02/18/18 09:36 withdrawal symptom Plan: continue detox
[2018-02-18] MEDS ORDERED: METHADONE HCL 5 MG TABLET (FOR DETOX USE ONLY) PO ONE (10:00)
[2018-02-18] MEDS: amLODIPine BESYLATE 5 MG TABLET (FP) PO SCH (10:13)
[2018-02-18] MEDS: PRENATAL VITAMINS W/ FOLIC ACID TABLET (FP) PO SCH (10:13)
[2018-02-18] MEDS: diazePAM 5 MG TABLET PO PRN (10:13)
[2018-02-18] MEDS: ENALAPRIL MALEATE 5 MG TABLET (FP) PO SCH (10:13)
[2018-02-18] MEDS: THIAMINE HCL 100 MG TABLET (FP) PO SCH (22:37)
[2018-02-18] MEDS: MELATONIN 5 MG TABLETS PO PRN (22:37)
[2018-02-18] MEDS: ATORVASTATIN CA 10 MG TABLET (FP) PO SCH (22:37)
--- NOTE | 2018-02-19 09:15 | PN ---
S Progress Note (SOAP) Subjective: alert,no complaint Objective: 02/19/18 09:14 Vital Signs Temperature 98.2 F 02/19/18 09:13 Pulse Rate 65 02/19/18 09:13 Respiratory Rate 18 02/19/18 09:13 Blood Pressure 139/81 02/19/18 09:13 O2 Sat by Pulse Oximetry (%) Assessment: 02/19/18 09:14 withdrawal symptom Plan: continue detox,discharge in am
[2018-02-19] MEDS ORDERED: METHADONE HCL 10 MG TABLET (FOR DETOX USE ONLY) PO ONE (10:00)
[2018-02-19] MEDS: ENALAPRIL MALEATE 5 MG TABLET (FP) PO SCH (10:04)
[2018-02-19] MEDS: amLODIPine BESYLATE 5 MG TABLET (FP) PO SCH (10:04)
[2018-02-19] MEDS: PRENATAL VITAMINS W/ FOLIC ACID TABLET (FP) PO SCH (10:04)
[2018-02-19] MEDS: THIAMINE HCL 100 MG TABLET (FP) PO SCH (22:26)
[2018-02-19] MEDS: ATORVASTATIN CA 10 MG TABLET (FP) PO SCH (22:27)
[2018-02-19] MEDS: MELATONIN 5 MG TABLETS PO PRN (22:27)
[2018-02-20] MEDS ORDERED: METHADONE HCL 5 MG TABLET (FOR DETOX USE ONLY) PO ONE (06:00)
--- NOTE | 2018-02-20 08:53 | PN ---
S Progress Note (SOAP) Subjective: alert,no complaint Objective: 02/20/18 08:52 Vital Signs Temperature 97.9 F 02/20/18 07:20 Pulse Rate 65 02/20/18 07:20 Respiratory Rate 18 02/20/18 07:20 Blood Pressure 153/72 02/20/18 07:20 O2 Sat by Pulse Oximetry (%) Assessment: 02/20/18 08:52 detox completed,no withdrawal symptom Plan: discharge today,follow up with after care program as arrangement
--- NOTE | 2018-02-20 08:57 | DS ---
[facility] Detox Discharge Summary Admission Date: 02/15/18 Discharge Date: 02/20/18 - History Present History: Opioid Dependence Additional Comments: follow up with after care program as arrangement Pertinent Past History: hypertension hyperlipidemia nicotine dependence - Physical Exam Results Vital Signs: Vital Signs Temperature 97.9 F 02/20/18 07:20 Pulse Rate 65 02/20/18 07:20 Respiratory Rate 18 02/20/18 07:20 Blood Pressure 153/72 02/20/18 07:20 O2 Sat by Pulse Oximetry (%) Pertinent Admission Physical Exam Findings: withdrawal symptom Vital Signs Temperature 97.9 F 02/20/18 07:20 Pulse Rate 65 02/20/18 07:20 Respiratory Rate 18 02/20/18 07:20 Blood Pressure 153/72 02/20/18 07:20 O2 Sat by Pulse Oximetry (%) Laboratory Last Values WBC 3.7 K/mm3 (4.0-10.0) L 02/16/18 07:00 RBC 4.13 M/mm3 (4.00-5.60) 02/16/18 07:00 Hgb 11.2 GM/dL (11.7-16.9) L 02/16/18 07:00 Hct 33.9 % (35.4-49) L 02/16/18 07:00 MCV 82.2 fl (80-96) 02/16/18 07:00 MCH 27.1 pg (25.7-33.7) 02/16/18 07:00 MCHC 33.0 g/dl (32.0-35.9) 02/16/18 07:00 RDW 13.7 % (11.9-15.9) 02/16/18 07:00 Plt Count 207 K/MM3 (134-434) D 02/16/18 07:00 MPV 8.9 fl (7.5-11.1) 02/16/18 07:00 Sodium 140 mmol/L (136-145) 02/16/18 07:00 Potassium 4.7 mmol/L (3.5-5.1) 02/16/18 07:00 Chloride 104 mmol/L (98-107) 02/16/18 07:00 Carbon Dioxide 30 mmol/L (21-32) 02/16/18 07:00 Anion Gap 6 (8-16) L 02/16/18 07:00 BUN 11 mg/dL (7-18) 02/16/18 07:00 Creatinine 1.0 mg/dL (0.7-1.3) 02/16/18 07:00 Creat Clearance w eGFR > 60 (>60) 02/16/18 07:00 Random Glucose 100 mg/dL (74-106) 02/16/18 07:00 Calcium 9.1 mg/dL (8.5-10.1) 02/16/18 07:00 Total Bilirubin 0.3 mg/dL (0.2-1.0) 02/16/18 07:00 AST 18 U/L (15-37) D 02/16/18 07:00 ALT 22 U/L (12-78) D 02/16/18 07:00 Alkaline Phosphatase 77 U/L (45-117) 02/16/18 07:00 Total Protein 7.2 g/dl (6.4-8.2) 02/16/18 07:00 Albumin 3.8 g/dl (3.4-5.0) 02/16/18 07:00 Urine Color Yellow 02/17/18 14:00 Urine Appearance Clear 02/17/18 14:00 Urine pH 7.0 (5.0-8.0) D 02/17/18 14:00 Ur Specific [place] 1.012 (1.001-1.035) 02/17/18 14:00 Urine Protein Negative (NEGATIVE) 02/17/18 14:00 Urine Glucose (UA) Negative (NEGATIVE) 02/17/18 14:00 Urine Ketones Negative (NEGATIVE) 02/17/18 14:00 Urine Blood Negative (NEGATIVE) 02/17/18 14:00 Urine Nitrite Negative (NEGATIVE) 02/17/18 14:00 Urine Bilirubin Negative (<2.0 mg/dL) 02/17/18 14:00 Urine Urobilinogen Negative mg/dL (0.2-1.0) 02/17/18 14:00 Ur Leukocyte Esterase Trace (NEGATIVE) 02/17/18 14:00 Urine WBC (Auto) 1 /hpf (3-5) 02/17/18 14:00 Urine RBC (Auto) <1 /hpf (0-3) 02/17/18 14:00 Ur Epithelial Cells Rare /HPF (FEW) 02/17/18 14:00 Hyaline Casts 1 /lpf 02/17/18 14:00 Urine Mucus Rare 02/17/18 14:00 RPR Titer Nonreactive (NONREACTIVE) 02/16/18 07:00 - Treatment Hospital Course: Detox Protocol Followed, Detoxed Safely, Responded well, Discharged Condition Good - Medication Discharge Medications: Ambulatory Orders Amlodipine Besylate 5 mg PO DAILY 30 Days #30 tablet 08/16/17 Enalapril Maleate [Vasotec -] 5 mg PO DAILY 30 Days #30 tablet NS 08/16/17 Simvastatin 10 mg PO HS 30 Days #30 tablet NS 08/16/17 - Diagnosis (1) Opioid dependence with withdrawal Current Visit: Yes Status: Acute (2) Hyperlipidemia Current Visit: Yes Status: Chronic Qualifiers: Hyperlipidemia type: unspecified Qualified Code(s): E78.5 - Hyperlipidemia , unspecified (3) Hypertension Current Visit: Yes Status: Chronic Qualifiers: Hypertension type: essential hypertension Qualified Code(s): I10 - Essential (primary) hypertension (4) Nicotine dependence Current Visit: No Status: Acute Qualifiers: Nicotine product type: cigarettes Substance use status: uncomplicated Qualified Code(s): F17.210 - Nicotine dependence, cigarettes, uncomplicated - AMA Did Patient Leave Against Medical Advice: No
[2018-02-20] MEDS: amLODIPine BESYLATE 5 MG TABLET (FP) PO SCH (09:22)
[2018-02-20] MEDS: PRENATAL VITAMINS W/ FOLIC ACID TABLET (FP) PO SCH (09:22)
[2018-02-20] MEDS: ENALAPRIL MALEATE 5 MG TABLET (FP) PO SCH (09:22)
[2018-02-20 11:21] VITALS: BP 140/73; PULSE 66; TEMP 98.1
== END 2018-02-20 09:22 | disposition home or self-care (01) | DRG 897 ==
LOC: YASAS 14:45 → Y6N 18:19
PROVIDERS: ADMIT Surgery; ATTEND Surgery
PROC: HZ2ZZZZ Detoxification Services for Substance Abuse Treatment (ICD-10-PCS; principal; 2018-02-15)
DX: F11.23 Opioid dependence with withdrawal (principal); F17.210 Nicotine dependence, cigarettes, uncomplicated; I10 Essential (primary) hypertension; E78.5 Hyperlipidemia, unspecified; Z86.19 Personal history of other infectious and parasitic diseases
CPT/HCPCS: 36415; 80053; 81003; 81015; 85027; 86593; 93005; 93010